=== PATIENT | female | born 1950 | race Caucasian/White ===

== ENCOUNTER 2020-04-12 17:47 | Emergency (ER) | payer BC, SELFPAY ==
--- NOTE | ~2020-04-12 | XR_ITS ---
EXAMINATION: XR chest 2V 04/12/2020 18:22 INDICATION: Tachycardia. Hypertension. PROCEDURE: 2 view chest COMPARISON: No prior studies for comparison. FINDINGS: The lungs are clear. The cardiomediastinal silhouette is within normal limits. There are no pleural effusions. There is no pneumothorax suspected. IMPRESSION: 1: NO ACUTE CARDIOPULMONARY DISEASE. Reviewed, dictated and finalized at location A.
--- NOTE | 2020-04-12 17:53 | ECG_ITS ---
Measurements Intervals [place] Rate: 128 P: MT: 0 QRS: 1 QRSD: 93 T: 66 QT: 300 QTc: 439 Interpretive Statements ATRIAL FIBRILLATION WITH RAPID VENTRICULAR RESPONSE VOLTAGE CRITERIA FOR LVH NONSPECIFIC ST & T-WAVE ABNORMALITY- HIGH LATERAL LEADS BASELINE ARTIFACT- I, II, AVR ABNORMAL ECG Electronically Signed On 04-13-2020 7:23:05 CDT by Sheng Lazo D.O.
[2020-04-12 17:57] VITALS: BP 160/117; PULSE 144; RESP 20; TEMP 36.1; O2SAT 99
[2020-04-12 18:08] LABS: Basophils Absolute Auto 0.1 K/mm3 (0.0-0.1); Basophils Percent Auto 0.8 % (0.2-1.2); Eosinophils Absolute Auto 0.2 K/mm3 (0-0.3); Eosinophils Percent Auto 1.5 % (0-4.4); Hemoglobin 14.3 g/dL (12.0-15.0); Immature Granulocyte Absolute 0.04 K/mm3 (0.00-0.031); Immature Granulocyte Percent A 0.4 % (0-0.5); Lymphocytes Absolute Auto 3.03 K/mm3 (0.9-3.2); Lymphocytes Percent Auto 31.1 % (18.3-44.2); Mean Corpuscular HGB Conc 32.5 g/dl (32-36); Mean Corpuscular Hemoglobin 28.9 pg (26-34); Mean Corpuscular Volume 88.9 fl (80-100); Mean Platelet Volume 10.1 fl (7.4-10.4); Monocytes Absolute Auto 1.1 K/mm3 (0.1-0.6); Monocytes Percent Auto 10.9 % (2.6-8.5); Neutrophils Absolute Auto 5.4 K/mm3 (1.3-6.7); Neutrophils Percent Auto 55.3 % (45.5-73.1); Platelet Count Result 303 k/mm3 (150-375); Red Blood Count 4.95 M/mm3 (4.2-5.4); Red Cell Distribution Width 13.1 % (11.5-14.5); White Blood Count 9.8 K/mm3 (4.5-10.0)
[2020-04-12 18:17] LABS: Prothrombin Time 12.8 Seconds (11.1-14.7)
[2020-04-12 18:18] LABS: Partial Thromboplastin Time 28.1 SECONDS (22.3-36.8)
[2020-04-12 18:19] LABS: Blood Urea Nitrogen 9 mg/dL (7-17); Calcium 9.1 mg/dL (8.4-10.2); Carbon Dioxide 31 mmol/L (22-30); Chloride 105 mmol/L (98-107); Estimated CRCL calculation 71 ml/min; Estimated Glomerular Filt Rate > 60; Glucose 77 mg/dL (65-105); Potassium 3.7 mmol/L (3.4-5.0); Sodium 140 mmol/L (137-145)
[2020-04-12 18:31] LABS: Troponin I < 0.012 ng/mL (0.000-0.034)
[2020-04-12] MEDS: ASPIRIN 81 MG CHEWABLE TABLET 324 MG PO (18:50)
[2020-04-12 18:52] VITALS: BP 142/80; PULSE 64; RESP 20; O2SAT 100
--- NOTE | 2020-04-12 19:08 | ED.ARRPALP ---
HPI - Arrhythmia/Palpitations General Chief Complaint: Arrhythmia/Palpitations Stated Complaint: heart racing Time Seen by Provider: 04/12/20 19:01 Source: RN notes reviewed History of Present Illness HPI narrative: Patient presents emergency department from home for arrhythmia. Patient states approximately 30 minutes prior to arrival she began feeling her heart was racing. She states that with that feeling she had a mild fullness in her chest. She states that she came to the emergency department and symptoms resolved on their own and currently has no complaints she denies any fevers or chills shortness of breath abdominal pain nausea vomiting or any other symptoms she states she does have a history of feeling similar complaints approximately once every 6 months she is had no formal work-up no cardiac history Related Data Home Medications Medication Instructions Recorded Confirmed fluoxetine 40 mg PO DAILY 04/12/20 lansoprazole 15 mg PO DAILY 04/12/20 Allergies Allergy/AdvReac Type Severity Reaction Status Date / Time No Known Allergies Allergy Verified 04/12/20 18:51 Review of Systems Review of Systems: Narrative: Gen.: Denies fevers or chills ENT: Denies congestion Respiratory: Denies shortness of breath or cough CV: See HPI GI: Denies abdominal pain nausea, emesis or diarrhea Musculoskeletal: Denies back pain or muscle pain Neuro: Denies numbness, tingling, weakness or focal weakness Skin: Denies rash Except as documented, all other systems reviewed and negative [facility] Past Medical History Medical History (Updated 04/12/20 @ 21:31 by Andrew Cornelius DO) Patient denies significant medical history Family History Family History (Updated 09/26/15 @ 14:20 by DOCTOR UNKNOWN) Mother Family history of Alzheimer's disease Sibling Family history of amyotrophic lateral sclerosis Patient's sister is Father Malignant neoplasm of prostate Other Depression Family history of malignant neoplasm of male breast Social History Social History Smoking status: Never smoker Second hand tobacco smoke exposure: No Smoking end date: 11/14/81 Alcohol intake: never Exam Narrative: Exam Narrative: APPEARANCE: No acute distress, nontoxic, resting in bed EYES: EOMI HEENT: Normocephalic, atraumatic, OMM RESPIRATORY: No respiratory distress Clear to auscultation bilaterally with no rhonchi wheezing or rales. CARDIOVASCULAR: Regular rate and rhythm without murmurs rubs or gallops. ABDOMINAL: Soft, nontender, nondistended, no rebound or guarding MUSCULOSKELETAl: Moves all extremities. No clubbing, cyanosis or edema. NEURO: Awake and alert. Following commands, speech normal, no focal deficits SKIN:: Warm, dry. No rashes lesions or abrasions PSYCHIATRIC: Normal affect/mood, Course Course Emergency Course: Patient spontaneously resolved to sinus rhythm in room Called and discussed with Dr. Hernandez presentation and work-up. 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 Howard for Dr. Murillo updated on patient care in ED Discussed with patient results of workup and diagnosis. Discussed need for follow-up with primary care, proper use of medication, and reasons to return to the emergency department. Patient understands and agrees to current treatment plan Vital Signs Vital signs: Vital Signs Temperature 97.0 F L 04/12/20 17:57 Pulse Rate 144 H 04/12/20 17:57 Respiratory Rate 20 04/12/20 17:57 Blood Pressure 160/117 H 04/12/20 17:57 Pulse Oximetry 99 04/12/20 17:57 Temperature 97.0 F L 04/12/20 17:57 Pulse Rate 62 04/12/20 22:02 Respiratory Rate 16 04/12/20 21:58 Blood Pressure 161/73 H 04/12/20 21:58 P
--- NOTE | 2020-04-12 19:10 | ECG_ITS ---
Measurements Intervals [place] Rate: 66 P: 28 CT: 149 QRS: 6 QRSD: 91 T: 51 QT: 420 QTc: 441 Interpretive Statements SINUS RHYTHM VOLTAGE CRITERIA FOR LVH MINIMAL Q WAVES- HIGH LATERAL LEADS BORDERLINE ECG Electronically Signed On 04-13-2020 7:25:57 CDT by Sheng Lazo D.O.
[2020-04-12 20:52] VITALS: BP 167/74; PULSE 58; RESP 16; O2SAT 100
[2020-04-12 21:25] LABS: Troponin I < 0.012 ng/mL (0.000-0.034)
[2020-04-12 21:58] VITALS: BP 161/73; PULSE 64; RESP 16; O2SAT 99
[2020-04-12 22:02] VITALS: PULSE 62
[2020-04-12] MEDS: METOPROLOL TARTRATE 12.5 MG TABLET PO (22:02)
[2020-04-12] MEDS: APIXABAN 5 MG TABLET PO (22:02)
== END 2020-04-12 22:07 | disposition home or self-care (01) ==
PROVIDERS: Emergency Medicine; Emergency Provider Emergency Medicine; PCP Physician Assistant
DX: I48.0 Paroxysmal atrial fibrillation (principal); R94.31 Abnormal electrocardiogram [ECG] [EKG]
CPT/HCPCS: 36415; 71046; 80048; 84484; 85025; 85610; 85730; 93005; 99284; A9270

== ENCOUNTER 2020-08-28 08:07 | Outpatient (CLI) | payer BC, SELFPAY ==
[2020-08-28 08:42] LABS: Hematocrit 40.8 % (37.0-47.0); Hemoglobin 13.4 g/dL (12.0-15.0); Mean Corpuscular HGB Conc 32.8 g/dl (32-36); Mean Corpuscular Hemoglobin 29.3 pg (26-34); Mean Corpuscular Volume 89.3 fl (80-100); Mean Platelet Volume 10.1 fl (7.4-10.4); Platelet Count Result 266 k/mm3 (150-375); Red Blood Count 4.57 M/mm3 (4.2-5.4); Red Cell Distribution Width 13.1 % (11.5-14.5); White Blood Count 7.8 K/mm3 (4.5-10.0)
[2020-08-28 08:55] LABS: Alanine Aminotransferase 15 U/L (4-35); Alkaline Phosphatase 79 U/L (38-126); Anion Gap 5 mmol/L (8-16); Aspartate Amino Transferase 28 U/L (14-36); Bilirubin,Total 0.4 mg/dL (0.2-1.3); Blood Urea Nitrogen 14 mg/dL (7-17); Calcium 9.1 mg/dL (8.4-10.2); Carbon Dioxide 30 mmol/L (22-30); Chloride 102 mmol/L (98-107); Cholesterol 171 mg/dL (0-200); Estimated Glomerular Filt Rate > 60; Glucose 106 mg/dL (65-105); HDL Direct 55 mg/dL; Potassium 4.5 mmol/L (3.4-5.0); Sodium 137 mmol/L (137-145); Triglycerides 131 mg/dL (<150)
[2020-08-28 09:06] LABS: LDL Cholesterol Direct 87 mg/dL
[2020-08-28 10:00] LABS: Folic Acid 16.1 ng/mL (2.76->20)
== END 2020-08-28 08:08 | disposition home or self-care (01) ==
LOC: ANHLAB 08:10
PROVIDERS: PCP Physician Assistant; Visit Provider Physician Assistant
DX: R53.83 Other fatigue (principal); I10 Essential (primary) hypertension
CPT/HCPCS: 36415; 80053; 80061; 82607; 82746; 84443; 85027

== ENCOUNTER → 2021-04-16 14:43 | Outpatient (CLI) | payer BC, SELFPAY ==
--- NOTE | ~2021-04-16 | MM_ITS ---
EXAMINATION: MM screening [place] BI w susie HISTORY: Screening TECHNIQUE: Craniocaudal and mediolateral oblique 3-D tomosynthesis images were obtained and synthetic 2-D images were generated. CAD analysis was submitted and interpreted. COMPARISON: Comparison to multiple prior studies sequentially, with oldest reviewed study dated 07/2015. BREAST PARENCHYMAL COMPOSITION: The breasts are almost entirely fatty. FINDINGS: There is no evidence of suspicious mass, calcification, or architectural distortion to sugg est malignancy in either breast. There has been no suspicious interval change. IMPRESSION: 1. No mammographic evidence of malignancy. 2. Recommend routine screening mammography in one year. BI-RADS Category 1: Negative Reviewed, dictated and finalized at location A.
== END ==
PROVIDERS: PCP Internal Medicine; Visit Provider Physician Assistant
DX: Z12.31 Encounter for screening mammogram for malignant neoplasm of breast (principal)
CPT/HCPCS: 77063; 77067

== ENCOUNTER 2021-05-11 10:43 | Outpatient (CLI) | payer BC, SELFPAY ==
--- NOTE | ~2021-05-11 | MR_ITS ---
EXAMINATION: MR knee RT wo con DATE: 05/11/2021 11:47 INDICATION: Right knee pain TECHNIQUE: Magnetic resonance imaging (MRI) of the right knee was performed without intravenous contr ast. Sequences included coronal PD-weighted FSE, coronal PD-weighted FS FSE, sagittal T2-weighted FS E, sagittal PD-weighted FS FSE and axial PD weighted fat saturated FSE. COMPARISON: None. FINDINGS: Medial compartment: Vertical . Beak configuration tear descending from the free edge to the periphery of the body of the medial meniscus. Small region of partial-thickness chondral fissuring at the anterior weightbearing m edial femoral condyle. Partial thickness cartilage loss involving greater than 50% the cartilage thic kness with deep fissuring at the central aspect of the weightbearing medial femoral condyle. Lateral compartment: Complex tear and lateral extrusion of the lateral meniscal body. Deep chondral ulceration along the p osterior weightbearing lateral femoral condyle. Patellofemoral compartment: Extensive partial thickness trochlear chondral ulceration with small region of mild cortical irregula rity at the medial trochlea. Patellar cartilage is normal. Ligaments and tendons: Anterior and posterior cruciate ligaments are normal. The medial collateral ligament is normal. There is thickening and mild increased signal of the proximal fibular collateral ligament without surround ing edema consistent with mild scarring related to chronic sprain. The extensor mechanism is normal. The visualized medial and lateral hamstring tendons as well as the iliotibial band are normal. Fluid: Physiologic amount of fluid in the joint space. No loose osteochondral bodies identified. Moderate-si zed Loo's cyst measuring 6 cm craniocaudally and up to 2.1 x 1.1 cm in maximal orthogonal dimension s. Osseous/other: Normal marrow signal. No fracture or pathologic marrow replacing process. IMPRESSION: 1. Medial and lateral meniscal tears. 2. 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 3. Moderate-sized Loo's cyst. 4. Thickening of the proximal fibular collateral ligament without significant surrounding edema consi stent with scarring related to chronic sprain. Reviewed, dictated and finalized at location A. IMPRESSION: 1. Medial and lateral meniscal tears. 2. Mild tricompartmental osteoarthritis with moderate to high-grade chondromala rory along the trochlea and regions of moderate grade chondral malacia in the me dial and lateral compartments. 3. Moderate-sized Loo's cyst. 4. Thickening of the proximal fibular collateral ligament without significant s urrounding edema consistent with scarring related to chronic sprain.
== END 2021-05-11 10:44 | disposition home or self-care (01) ==
LOC: ANHIMG 10:50
PROVIDERS: PCP Physician Assistant; Visit Provider Orthopaedic Surgery
DX: S83.241A Other tear of medial meniscus, current injury, right knee, initial encounter (principal); S83.281A Other tear of lateral meniscus, current injury, right knee, initial encounter; X58.XXXA Exposure to other specified factors, initial encounter; M71.21 Synovial cyst of popliteal space [Baker], right knee; M17.11 Unilateral primary osteoarthritis, right knee
CPT/HCPCS: 73721

== ENCOUNTER 2021-06-10 08:37 | Outpatient (CLI) | payer BC, SELFPAY ==
--- NOTE | 2021-06-10 08:45 | ECG_ITS ---
Measurements Intervals [place] Rate: 57 P: -6 [place]: 150 QRS: 0 QRSD: 106 T: 37 QT: 431 QTc: 420 Interpretive Statements SINUS BRADYCARDIA DELAYED PRECORDIAL R/S TRANSITION VOLTAGE CRITERIA FOR LVH BASELINE ARTIFACT- I, III, AVR, AVL, AVF BORDERLINE ECG Electronically Signed On 06-10-2021 8:56:19 CDT by Sheng Lazo D.O.
== END 2021-06-10 08:38 | disposition home or self-care (01) ==
LOC: ANHSURGERY 08:41
PROVIDERS: PCP Physician Assistant; Visit Provider Orthopaedic Surgery
DX: Z01.810 Encounter for preprocedural cardiovascular examination (principal); I10 Essential (primary) hypertension; R00.1 Bradycardia, unspecified
CPT/HCPCS: 93005

== ENCOUNTER 2021-06-15 01:14 | Day surgery (SDC) | payer BC, SELFPAY ==
[2021-06-09 10:51] VITALS: BMI 40.1
[2021-06-15] VITALS (8 sets, daily range): BP systolic 108–171; BP diastolic 60–82; PULSE 52–65; RESP 12–20; TEMP 36.4–36.9; O2SAT 98–100
--- NOTE | 2021-06-15 09:30 | WPDANESEPPF ---
Anes - Initial Pre Proc Eval Procedure: Operation Date: 06/15/21 15:00 Proposed Procedures p Right Knee Arthroscopy, Meniscectomy - Trace Roldan MD Date/Time: 06/15/21 09:30 Surgeon: Trace Roldan MD Pre Op Diagnosis: Right Knee Meniscal Tears Patient Data Age: 71 Gender: F Height: 1.57 m Weight: 99.5 kg Allergies Allergy/AdvReac Type Severity Reaction Status Date / Time No Known Allergies Allergy Verified 06/09/21 10:38 Home Medications Medication Instructions Recorded Confirmed Type fluoxetine 40 mg capsule 40 mg PO DAILY #90 cap 01/25/21 06/09/21 Rx lansoprazole 15 mg capsule,delayed 15 mg PO DAILY #90 cap 02/23/21 06/09/21 Rx release calcium carbonate 600 mg calcium 600 mg PO DAILY 03/02/21 06/09/21 History (1,500 mg) tablet multivitamin 1 tablet PO DAILY 03/17/21 06/09/21 History metoprolol succinate 25 mg 25 mg PO DAILY #90 tablet 04/21/21 06/09/21 Rx tablet,extended release 24 hr losartan 50 mg tablet See Rx Instructions .ROUTE 05/04/21 06/09/21 Rx .COMPLEX #90 tablet apixaban 5 mg tablet 5 mg PO BID #60 tablet 05/25/21 06/09/21 Rx Patient hx anesthesia problems: none Family hx anesthesia problems: none PMFSH Past Medical History Medical History (Updated 06/15/21 @ 09:31 by Aki Castillo MD) Anxiety Depression Hyperlipidemia Hypertension Morbid obesity with BMI of 40.0-44.9, adult Osteoarthritis of right knee Paroxysmal A-fib Right knee meniscal tear Surgical History Surgical History H/O arthroscopy of left knee 2008, Dr. Zhang H/O breast biopsy H/O laminectomy H/O: section History of cholecystectomy History of tonsillectomy Family History Family History Mother Family history of Alzheimer's disease Sibling Family history of amyotrophic lateral sclerosis Patient's sister is Father Malignant neoplasm of prostate Other Depression Family history of malignant neoplasm of male breast Social History Social History Smoking status: Former smoker Tobacco type: cigarettes Second hand tobacco smoke exposure: No Smoking end date: 11/14/81 Additional smoking assessment comments: stopped in 1981 few each day about 7 years total Alcohol intake: never Substance use: never Living arrangements: with family Gender identity (if verbalized by the patient): Female Anes - Eval Final PreProcedure Day of Procedure 06/15/21 09:30 Patient weight: morbidly obese Heart: regular rate and rhythm Lungs: clear to auscultation and normal air movement Airway: Mallampati scale class II Neurological: alert and oriented Last oral intake: >/= 8 hours ASA classification: III Emergent: no Anesthetic plan: proceed Anesthesia type and monitoring: general LMA Informed Consent: The patient's anesthetic plan and its attendant risks and benefits were discussed with the patient/family/POA. Questions were solicited and answers provided to the satisfaction of the patient/family/POA.
[2021-06-15] MEDS: ACETAMINOPHEN 500 MG TABLET 1000 MG PO (12:45)
[2021-06-15] MEDS: LACTATED RINGERS 1,000 ML 30 ML IV CONT (13:08)
[2021-06-15] MEDS: KETOROLAC 15 MG/ML VIAL (*BKC) IV PUSH (13:09)
--- NOTE | 2021-06-15 13:59 | WPDHPUPDATE1 ---
History and Physical Update Update Date/Time: 06/15/21 13:59 History and Physical has been reviewed, including an updated exam of the patient. There are NO changes in the patient's condition. Risks, benefits, and alternatives have been discussed and questions answered. Patient agrees to proceed with procedure.
[2021-06-15] MEDS: ceFAZolin 2 GM/D5W 50 ML 2 GM/50 ML BAG IVPB (14:02)
[2021-06-15] MEDS: LIDOCAINE HCL 1% LOCAL INJ 20 ML VIAL 30 ML INFILTRATE (14:21)
--- NOTE | 2021-06-15 15:22 | W.PM.PROC2 ---
Procedure Note - Detailed Date of Procedure 06/15/21 Pre-op Diagnosis Right Knee Meniscal Tears Post-op Diagnosis same Procedure Performed right knee arthroscopy with medial and lateral meniscectomy Surgeon Trace Roldan MD Anesthesia general Indications see H&P Description of Procedure The patient was identified and proper site identified. She was taken to the operating room and transferred to the OR table placing her supine taking care to pad the torso and extremities. After general anesthetic induction and intubation, a nonsterile tourniquet was placed high on the right thigh but was not use. The right lower extremity was positioned, prepped and draped in usual sterile fashion. 10 cc of 1% lidocaine was injected into the subcutaneous tissue in the area of the portals at start of the procedure, and an additional 10 at the end. The portals were established and the arthroscopy was carried out. articular cartilage tricompartmentally had extensive grade 2 and some grade 3 changes. There was marginal spurring noted around the distal femur. There was complex tearing of the medial and lateral menisci. These were debrided back to stable rim with basket forceps and a shaver. Arthrocare Wand was used for intra-articular hemostasis. The knee was flushed with a copious amount of arthroscopic fluid and equipment was removed. Portals were closed with 0 Vicryl sutures deep and three O nylon suture for the skin; a sterile dressing was applied. She tolerated the procedure well, was awakened, extubated and taken to recovery area in stable condition. There were no known intraoperative complications. Estimated blood loss was negligible. She received perioperative antibiotics. Estimated Blood Loss 20 Tourniquet Time 0 Drains No Packing No Pathology none sent Complications No immediate complications Condition stable Disposition PACU
== END 2021-06-15 17:15 | disposition home or self-care (01) ==
PROVIDERS: PCP Physician Assistant; Visit Provider Orthopaedic Surgery
PROC: (CPT 29870; principal; 2021-06-15 15:00)
DX: M23.361 Other meniscus derangements, other lateral meniscus, right knee (principal); M23.331 Other meniscus derangements, other medial meniscus, right knee; Z87.891 Personal history of nicotine dependence; I48.0 Paroxysmal atrial fibrillation; Z79.01 Long term (current) use of anticoagulants; F41.8 Other specified anxiety disorders; E78.5 Hyperlipidemia, unspecified; I10 Essential (primary) hypertension; E66.01 Morbid (severe) obesity due to excess calories; Z68.39 Body mass index [BMI] 39.0-39.9, adult; Z90.49 Acquired absence of other specified parts of digestive tract
CPT/HCPCS: 29880; A9270; J0690; J1100; J1885; J2405; J2704; J3010; J7120

== ENCOUNTER 2021-07-15 10:00 | Outpatient (RCR) | payer BC, SELFPAY ==
--- NOTE | 2021-06-17 11:50 | PTOPEVAL ---
PHYSICAL THERAPY EVALUATION Thank you for referring Angelica Treadwell to [facility] [place].? Angelica was evaluated for the dx of right knee scope. The patient is scheduled to be seen for therapy? 2 x/week for 4 weeks. Please review, sign, date and return this plan of care AILIN. I agree with and certify that the following plan of care is medically necessary. Referring Physician Date Referring Provider: Trace Roldan MD *PT Outpatient Evaluation Start: 06/17/21 10:36 Freq: Status: Active Protocol: Document 06/17/21 10:36 MLV (Rec: 06/17/21 11:12 MLV [id number]) Therapy Assessment Status Assessment Status Assessment Status Evaluation Evaluation Information Problem Diagnosis right knee MT; knee scope Onset 06/15/21 Additional Evaluation Detail The patient reports pain began in January 2021 after tripping over a cord. Prior to that, the patient reports no knee trouble at all. The patient lives home with her spouse, and was I w/o a device prior. The patient is retired and has no repetitive activities. The patient does housework, shopping and all other regular life activities. Diagnostic Tests MRI For This Problem Yes: MT; OA Previous Treatments Previous Treatments For This Problem none Pain Assessment Timing of Pain Assessment Timing of Pain Assessment Assessment Pain Scale Pain Scale Used Numeric (1 - 10) Self Report Pain Assessment Right Knee(s) Reported Pain Level 1 Pain Frequency Acute Other Pain Description 1 with activity Pain Score Pain Score 1: Self Report Interventions Used Interventions Used By Clinicians Education,Exercise,Ice Pain Relief Interventions Used By Elevation,Ice,Inactivity/Rest, Patient Medication,Position Change Lower Extremity Range of Motion General Lower Extremity Range of Motion Reason Not Measured WFL/Left,WFL/Right Gross Lower Extremity Range of Motion left knee active motion: 0-131' Comments right knee active motion: 0-88', passive motion 0-105' Lower Extremity Muscle Strength Testing General Lower Extremity Strength Reason Not Measured WFL/Left Gross Lower Extremity Strength right hip 4-/5. Left hip 3/5, knee 4-/5, ankle 5/5 Muscle Length Testing Muscle Length Testing Right Straight Leg Raise Muscle Length 90 (degrees) Left Straight Leg Raise Muscle Length 90
--- NOTE | 2021-07-13 09:47 | PCPTNOTE ---
Patient called & cancelled scheduled appointment this date-no reason given. Plans to return at next scheduled visit.
--- NOTE | 2021-07-15 15:28 | PTOPEVAL ---
PHYSICAL THERAPY DISCHARGE Thank you for referring Angelica Treadwell to [facility].? The patient has completed 8 visits for the dx of right knee scope. Goals are met. DC PT. Please review, sign, date and return this plan of care AILIN. I agree with and certify the following plan of care. Referring Physician Date Referring Provider: Trace Roldan MD *PT Outpatient Discharge Start: 06/17/21 10:36 Freq: Status: Active Protocol: Document 07/15/21 10:29 MLV (Rec: 07/15/21 10:46 MLV [id number]) Therapy Assessment Status Assessment Status Discharge Evaluation Information Problem Diagnosis right knee MT; knee scope Onset 06/15/21 Additional Evaluation Detail The patient reports pain decreased and has only a mild medial knee soreness. The patient reports completing all regular daily tasks without limits and feels she is walking well with the only trouble being stairs when alternating steps. The patient agrees she can continue her exercises on her own. Pain Assessment Timing of Pain Assessment Timing of Pain Assessment Assessment Self Report Self Report Pain Level 0 Pain Score Pain Score 0: Self Report Lower Extremity Range of Motion General Lower Extremity Range of Motion Gross Lower Extremity Range of Motion right knee 0-133 active motion Comments Lower Extremity Muscle Strength Testing General Lower Extremity Strength Gross Lower Extremity Strength right hip 5/5. Left hip 5/5, knee 5/5, ankle 5/5 isometric testing. Patient now able to climb stairs alternating with minimal UE support, indicating increased power at LE's. Palpation Assessment Palpation Palpation right knee incisions well healed with minimal noted swelling at knee. Non tender to pressure Balance Assessment Time Up Go (TUG) Timed Up and Go Test (TUG) (Seconds) 10 Assistive Devices None Gait Assessment Gait Pattern Assessment Other Gait Observations Patient ambulates I w/o a device w/o limits to distance. Occasional cues to decrease habit of lateral shifting. Stair Climbing Assessment Stair Climbing Assessment Stair Climbing Assistive Devices Railings Weight Bearing Status - Left Fu
== END 2021-07-16 10:19 | disposition home or self-care (01) ==
LOC: ANHPT 10:00
PROVIDERS: PCP Physician Assistant; Referring Provider Orthopaedic Surgery; Visit Provider Orthopaedic Surgery
DX: Z48.89 Encounter for other specified surgical aftercare (principal); Z98.890 Other specified postprocedural states
CPT/HCPCS: 97110; 97140; 97161

== ENCOUNTER 2021-08-26 09:05 | Outpatient (CLI) | payer BC, SELFPAY ==
[2021-08-26 09:29] LABS: Hematocrit 39.9 % (37.0-47.0); Mean Corpuscular HGB Conc 32.6 g/dl (32-36); Mean Corpuscular Hemoglobin 29.4 pg (26-34); Mean Corpuscular Volume 90.3 fl (80-100); Mean Platelet Volume 9.8 fl (7.4-10.4); Platelet Count Result 263 k/mm3 (150-375); Red Blood Count 4.42 M/mm3 (4.2-5.4); Red Cell Distribution Width 12.8 % (11.5-14.5); White Blood Count 7.5 K/mm3 (4.5-10.0)
[2021-08-26 10:45] LABS: Alanine Aminotransferase 15 U/L (4-35); Albumin Level 4.1 g/dL (3.5-5.1); Alkaline Phosphatase 77 U/L (38-126); Anion Gap 5 mmol/L (8-16); Aspartate Amino Transferase 27 U/L (14-36); Bilirubin,Total 0.4 mg/dL (0.2-1.3); Blood Urea Nitrogen 13 mg/dL (7-17); Calcium 9.1 mg/dL (8.4-10.2); Carbon Dioxide 30 mmol/L (22-30); Chloride 106 mmol/L (98-107); Cholesterol 172 mg/dL (0-200); Estimated Glomerular Filt Rate > 60; Glucose 105 mg/dL (65-110); HDL Direct 58 mg/dL; Potassium 4.5 mmol/L (3.4-5.0); Sodium 141 mmol/L (137-145); Triglycerides 86 mg/dL (<150)
[2021-08-26 10:55] LABS: LDL Cholesterol Direct 90 mg/dL
[2021-08-26 11:56] LABS: Folic Acid > 20.0 ng/mL (2.76->20)
== END 2021-08-26 09:06 | disposition home or self-care (01) ==
LOC: ANHLAB 09:09
PROVIDERS: PCP Physician Assistant; Visit Provider Physician Assistant
DX: R53.83 Other fatigue (principal); I10 Essential (primary) hypertension; E78.5 Hyperlipidemia, unspecified
CPT/HCPCS: 36415; 80053; 80061; 82607; 82746; 83735; 84443; 85027

== ENCOUNTER 2021-09-02 12:30 | Outpatient (RCR) | payer BC, SELFPAY ==
--- NOTE | 2021-08-12 10:52 | PTOPEVAL ---
PHYSICAL THERAPY EVALUATION Thank you for referring Angelica Treadwell to [facility].? Angelica was evaluated for the dx of right shoulder pain/tendonitis. The patient is scheduled to be seen for therapy?2 x/week for 4 weeks. Please review, sign, date and return this plan of care AILIN. I agree with and certify that the following plan of care is medically necessary. Referring Physician Date Attending Provider: Trace Roldan MD *PT Outpatient Evaluation Start: 08/12/21 09:30 Freq: Status: Active Protocol: Document 08/12/21 09:30 MLV (Rec: 08/12/21 10:35 MLV [id number]) Therapy Assessment Status Assessment Status Assessment Status Evaluation Evaluation Information Problem Diagnosis right shoulder pain/bone spur Onset December 2020 Cause no injury Additional Evaluation Detail The patient began having shoulder pain that got worse over time. The patient went to the MD, and was given an injection which helped the pain. The patient has a constant discomfort that is worse with certain motions and overuse. The patient is retired and does housework, and general life activities. The patient had trouble sleeping due to the pain and it is better since the shot but not completely better. Diagnostic Tests X-Rays For This Problem Yes: shoulder spur per pt Pain Assessment Timing of Pain Assessment Timing of Pain Assessment Assessment Pain Scale Pain Scale Used Numeric (1 - 10) Self Report Pain Assessment Right Shoulder(s) Reported Pain Level 1 Pain Description Aching Pain Frequency Chronic Other Pain Description 4 with overuse, 2 with sidelying sleeping Pain Aggravating Factors Exercise/Activity,Prolonged Position Pain Behaviors None Pain Score Pain Score 1: Self Report Interventions Used Interventions Used By Clinicians Education Pain Relief Interventions Used By Inactivity/Rest,Position Patient Change Upper Extremity Range of Motion General Upper Extremity Range of Motion Reason Not Measured WFL/Left,WFL/Right Gross Upper Extremity Range of Motion discomfort with right shoulder Comments active IR and elevation Upper Extremity Muscle Strength Testing General Upper Extremity Strength Reason Not Measu
--- NOTE | 2021-09-02 16:31 | PTOPEVAL ---
PHYSICAL THERAPY DISCHARGE Thank you for referring Angelica Teradwell to [facility].? Angelica has completed 5 visits for the dx of right shoulder pain. Goals are partially met and the pt cancelled her last few appts. The patient felt she was peaked with her therapy. DC PT. Please review, sign, date and return this plan of care AILIN. I agree with and certify the following plan of care. Referring Physician Date Attending Provider: Trace Roldan MD *PT Outpatient Discharge Start: 08/12/21 09:30 Freq: Status: Active Protocol: Document 09/02/21 15:26 MLV (Rec: 09/02/21 15:31 [email or web address] [email or web address]) Therapy Assessment Status Assessment Status Assessment Status Discharge Evaluation Information Problem Diagnosis right shoulder pain/bone spur Onset December 2020 Cause no injury Additional Evaluation Detail The patient reports her potential with therapy is peaked and wants to cancel her remaining appts. The patient denies trouble with her HEP and reports compliance. The patient states having pain mainly with more extensive reaching and lifting still but not really having pain at rest. Pain Assessment Timing of Pain Assessment Timing of Pain Assessment Assessment Pain Scale Pain Scale Used Numeric (1 - 10) Self Report Pain Assessment Right Shoulder(s) Reported Pain Level 0 Pain Description With Movement Pain Frequency Chronic Other Pain Description varies 2-5 with reach and lift Pain Behaviors Anxious Pain Score Pain Score 0: Self Report Interventions Used Interventions Used By Clinicians Education,Electrical Stimulation,Exercise,Heat Pain Relief Interventions Used By Exercise,Heat,Inactivity/Rest, Patient Position Change Upper Extremity Range of Motion General Upper Extremity Range of Motion Reason Not Measured WFL/Left,WFL/Right Gross Upper Extremity Range of Motion discomfort with arm elevation Comments Upper Extremity Muscle Strength Testing General Upper Extremity Strength Reason Not Measured WFL/Left,WFL/Right Gross Upper Extremity Strength Comments scapular strength: improved; lower traps 3+/5 benito, mid traps/rhomboids 4/5 without cueing required to initiate muscle contractions for postural correction. Palpation Asse
== END 2021-09-03 14:49 | disposition home or self-care (01) ==
LOC: ANHPT 12:30
PROVIDERS: PCP Physician Assistant; Visit Provider Orthopaedic Surgery
DX: M25.511 Pain in right shoulder (principal)
CPT/HCPCS: 97014; 97110; 97140; 97162; G0283

== ENCOUNTER 2021-09-21 08:59 | Outpatient (CLI) | payer BC, SELFPAY ==
--- NOTE | ~2021-09-21 | MR_ITS ---
EXAMINATION: MR shoulder RT wo con DATE: 09/21/2021 10:07 INDICATION: Right shoulder pain. TECHNIQUE: Magnetic resonance imaging (MRI) of the right shoulder was performed without intravenous c ontrast. Sequences included axial PD-weighted FS FSE, coronal oblique PD-weighted FS FSE and T2-weigh дмитрий FS FSE, and sagittal oblique T2-weighted FS FSE and T1-weighted FSE. COMPARISON: Right shoulder radiographs 07/30/2021 FINDINGS: Coracoacromial arch: The acromion undersurface is flat in morphology (type I). There is moderate acromioclavicular joint o steoarthritis. There is moderate subacromial/subdeltoid bursitis. Rotator cuff: There is a bursal-sided, partial-thickness tear of supraspinatus tendon measuring 12 mm anterior to p osterior by 6 mm proximal to distal by 70% tendon thickness. There is a small partial tear of the inf raspinatus myotendinous junction anteriorly. There is mild infraspinatus tendinopathy. Teres minor te ndon is normal. There is mild subscapularis tendinopathy. There is no asymmetric fatty atrophy of the rotator cuff muscle bellies. There is degenerative cystic change in greater tuberosity. Biceps tendon and glenoid labrum: Biceps tendon is in bicipital groove. There is mild intra-articular biceps tendinopathy. There is deg eneration of superior labrum without well-defined tear. Fluid: There is a small glenohumeral joint effusion. Bones/cartilage: The glenoid cartilage is normal. The humeral head cartilage is normal. IMPRESSION: 1. Bursal-sided, partial-thickness tear of supraspinatus tendon. Small partial-thickness tear of the myotendinous junction of the anterior infraspinatus (grade 2 muscle strain). 2. Moderate subacromial/subdeltoid bursitis. 3. Small glenohumeral joint effusion. 4. Moderate acromioclavicular joint osteoarthritis. 5. Mild intra-articular biceps tendinopathy. Reviewed, dictated and finalized at location A. [facility] IMPRESSION: 1. Bursal-sided, partial-thickness tear of supraspinatus tendon. Small partial- thickness tear of the myotendinous junction of the anterior infraspinatus (grad e 2 muscle strain). 2. Moderate subacromial/subdeltoid bursitis. 3. Small glenohumeral joint effusion. 4. Moderate acromioclavicular joint osteoarthritis. 5. Mild intra-articular biceps tendinopathy.
== END 2021-09-21 09:00 | disposition home or self-care (01) ==
PROVIDERS: PCP Physician Assistant; Visit Provider Orthopaedic Surgery
DX: M75.51 Bursitis of right shoulder (principal); M25.411 Effusion, right shoulder; M19.011 Primary osteoarthritis, right shoulder
CPT/HCPCS: 73221

== ENCOUNTER 2021-12-14 00:08 | Day surgery (SDC) | payer BC, SELFPAY ==
[2021-12-07 15:45] VITALS: BMI 40.8
--- NOTE | 2021-12-07 16:11 | PC.NURSE ---
Report to the Outpatient Waiting Room, entrance under the green pavilion located off [facility], at time _8:30AM on date _12/14/21 . OR Time: ___10:30AM . - You and your visitor will be asked a series of questions to screen for COVID 19 for your protection. - A mask is required within the hospital. - Only one visitor is allowed at this time. Patient visitors will be guided where to wait when not with patient. Preoperative COVID Testing Requirements: No COVID Test needed if: (proof is required; if not received patient will have Rapid Test prior to entry) - Patient has received COVID Vaccine at least 14 days prior to procedure date or - Patient has positive COVID test result within last 90 days of surgery date. COVID Test needed if above criteria is not met If not COVID vaccinated a COVID test must be conducted within 72 hours of surgery and patient is asked to isolate self from time of testing until procedure. You will go to the [facility] Site for your COVID testing. The [facility] Testing site is located at the corner of [address] from [facility]. You will only be called if COVID results are positive and your surgeon may reschedule your elective surgery date. Patients may have clear liquids (water, carbonated beverages, clear teas, apple juice) until 3 hours prior to surgery with a maximum of 20 ounces. - No food from midnight until time of surgery - Infants may have breast milk until 4 hours before surgery, infant formula 6 hours prior to surgery. - Children will be allowed to drink immediately following surgery. If applicable, please bring a bottle or sippy cup to assist with drinking. Juice, water, soda, and popsicles are readily available. For infants on formula, please bring formula the day of surgery. Pacifiers are allowed. Take the following medications with a SIP of water the morning of surgery: __FLUOXETINE & METOPROLOL Medications to discontinue per physician ___HOLD ELIQUIS (PER DR BARRETT) & ALL VITAMINS/SUPPLEMENTS 3 DAYS PRE-OP Date to take last dose 12/10/21 Please no make-up, nail austrian, hairspray, perfume, deodorant, or body powder the day of surgery. No jewelry (including any body piercings) or valuables the day of surgery, leave them at home. Please take a shower or bath the night before, or the morning of, surgery with an antibacterial soap. Wear comfortable, loose fitting clothing. Children are encouraged to wear pajamas. - Jewelry must be removed prior to entering the operating room. Rings and piercings that are not removed may be cut off. - The hospital will not accept responsibility for valuables. - Please leave all valuables, including medications, at home the day of surgery. If you are going home after surgery, a licensed motor coach driver must drive you home. - NO public transportation without another adult. - We recommend that an adult stay with you for 24 hours following discharge. - We also recommend that you do not drive, make important decision, drink alcoholic beverages, or take any drugs that were not prescribed by your health care provider for at least 24 hours after your discharge time. For Pediatric surgeries, we recommend two adults accompany the child home (only one inside the building at this time). Follow any additional instructions given to you from your surgeon. Telephone instructions given to __PATIENT and asked if any additional questions and then verbalized understanding. Patient advised to call surgeon office or pre surgery nurse liaison [phone] if any additional questions.
--- NOTE | 2021-12-12 16:34 | WPDANESEPPF ---
Anes - Initial Pre Proc Eval Procedure: Operation Date: 12/14/21 10:30 Proposed Procedures p Right Open Rotator Cuff Repair, Distal Clavicle Excision - Trace Roldan MD <Aki Castillo MD - Last Filed: 12/14/21 10:59> Date/Time: 12/12/21 16:34 <Aki Castillo MD - Last Filed: 12/14/21 10:59> Surgeon: Trace Roldan MD <Aki Castillo MD - Last Filed: 12/14/21 10:59> Pre Op Diagnosis: right rotator cuff tear, ac arthritis <Aki Castillo MD - Last Filed: 12/14/21 10:59> Patient Data Age: 71 Gender: F Height: 1.59 m Weight: 103 kg <Aki Castillo MD - Last Filed: 12/14/21 10:59> Allergies Allergy/AdvReac Type Severity Reaction Status Date / Time No Known Allergies Allergy Verified 12/14/21 08:57 <Aki Castillo MD - Last Filed: 12/14/21 10:59> Home Medications Medication Instructions Recorded Confirmed Type calcium carbonate 600 mg calcium 600 mg PO DAILY 03/02/21 12/14/21 History (1,500 mg) tablet multivitamin 1 tablet PO DAILY 03/17/21 12/14/21 History lansoprazole 15 mg capsule,delayed 15 mg PO DAILY #90 cap 10/11/21 12/14/21 Rx release acetaminophen 325 mg tablet 325 mg PO Q6H PRN 12/01/21 12/07/21 History bismuth subsalicylate 262 mg/15 mL 524 mg PO QID PRN 12/01/21 12/14/21 History oral suspension fluoxetine 40 mg PO QAM 12/07/21 12/14/21 History losartan 50 mg PO QAM 12/07/21 12/14/21 History metoprolol succinate 25 mg PO QAM 12/07/21 12/14/21 History apixaban 5 mg tablet 5 mg PO BID #60 tablet 12/08/21 Rx <Aki Castillo MD - Last Filed: 12/14/21 10:59> Patient hx anesthesia problems: none <Srikanth Davis MD - Last Filed: 12/14/21 09:33> Family hx anesthesia problems: none <Srikanth Davis MD - Last Filed: 12/14/21 09:33> Results Review: All pre-operative results and documents have been reviewed as part of the pre-operative evaluation. <Aki Castillo MD - Last Filed: 12/14/21 10:59> PMFSH Past Medical History Medical History: Medical History Anxiety Arthritis of right acromioclavicular joint Depression Hyperlipidemia Hypertension Morbid obesity with BMI of 40.0-44.9, adult Osteoarthritis of right knee Paroxysmal A-fib Right knee meniscal tear Right rotator cuff tear Subacromial impingement of right shoulder <Aki Castillo MD - Last Filed: 12/14/21 10:59> Surgical History Surgical History: Surgical History H/O arthroscopy of left knee 2008, Dr. Zhang H/O breast biopsy H/O laminectomy H/O: section History of arthroscopy of right knee medial and lateral meniscectomy June 15, 2021 History of cholecystectomy History of tonsillectomy <Aki Castillo MD - Last Filed: 12/14/21 10:59> Family History Family History: Family History Mother Family history of Alzheimer's disease Sibling Family history of amyotrophic lateral sclerosis Patient's sister is Father Malignant neoplasm of prostate Other Depression <Aki Castillo MD - Last Filed: 12/14/21 10:59> Social History Social History: Social History Smoking packs per day: 1 Smoking cigarettes per day: 20.0 Years smoked: 25 Smoking pack-years: 25.00 Smoking status: Former smoker Tobacco type: cigarettes Second hand tobacco smoke exposure: No Smoking end date: 05/14/82 Additional smoking assessment comments: stopped in 1981 few each day about 7 years total Alcohol intake: never Substance use: never Living arrangements: with family Additional living arrangements comments: HUSB Gender identity (if verbalized by the patient): Female Spiritual care concerns: No <Wells Kamran Castillo MD - Last Filed: 12/14
--- NOTE | 2021-12-12 16:36 | WPDANESPNB ---
Anes - Peripheral Nerve Block Date/Time: 12/12/21 16:36 I have discussed with the patient/family/POA the placement of a peripheral nerve block for post-operative pain management, including associated risks, benefits, complications, and side effects. Alternative methods of post-operative analgesia were detailed. Questions were solicited and answers provided to the satisfaction of the patient/family/POA. Time-Out: A pre-procedural Time-Out was completed immediately before starting the procedure and confirmed: Patient Identification, Site, Procedure, Patient Position and the Availability of Requisite Equipment. Clinical Indications: Acute post-operative pain management requested by the operative surgeon. Nerve Block Insertion Note Anes-nerve block: supraclavicular right Patient position: supine Skin prep: chlorhexidine Needle: 22 gauge, stimulating, insulated echogenic needle. Needle length: 80 mm Technique: ultrasound (in plane) Injectate: bupivacaine 0.5% with epi 5 mcg/ml (20cc) Observations: tolerated well Complications: none Procedure start time:: 1050 Procedure end time:: 1055
[2021-12-14] VITALS (9 sets, daily range): BP systolic 97–163; BP diastolic 37–89; PULSE 55–69; RESP 14–16; TEMP 36.1–36.2; O2SAT 92–99
[2021-12-14] MEDS: ACETAMINOPHEN 500 MG TABLET 1000 MG PO (09:10)
[2021-12-14] MEDS: LACTATED RINGERS 1,000 ML 30 ML IV CONT ×2 (09:17→12:29)
[2021-12-14] MEDS: KETOROLAC 15 MG/ML VIAL (*BKC) IV PUSH (09:41)
--- NOTE | 2021-12-14 10:03 | WPDHPUPDATE1 ---
History and Physical Update Update Date/Time: 12/14/21 10:03 History and Physical has been reviewed, including an updated exam of the patient. There are NO changes in the patient's condition. Risks, benefits, and alternatives have been discussed and questions answered. Patient agrees to proceed with procedure.
[2021-12-14] MEDS: ceFAZolin 2 GM/D5W 50 ML 2 GM/50 ML BAG IVPB (11:03)
[2021-12-14] MEDS: BUPIVACAINE/EPINEPHRINE 0.25% 10 ML VIAL INFILTRATE (11:31)
--- NOTE | 2021-12-14 12:25 | P.OP_ITS ---
Procedure Note - Detailed Date of Procedure 12/14/21 Pre-op Diagnosis right rotator cuff tear, ac arthritis Post-op Diagnosis same Procedure Performed Right shoulder rotator cuff repair with distal clavicle excision Surgeon Trace Roldan MD Vp Director Of [employer] [place] Anesthesia general and regional Description of Procedure Patient was identified and proper site identified. In the preop holding area the anesthesia team performed a right upper extremity block. She was then taken to the operating room and transferred to the or table taking care to pad the torso and extremities. After general anesthetic induction and intubation, she was put in a semi beach chair position in the usual manner for a right shoulder procedure. Her head was secured taking care to neither rotate nor extend the head and neck. The right upper extremity was prepped and draped free in usual sterile fashion. The subcutaneous tissue in the area of the incision was injected with 10 cc of 0.25% Marcaine and epinephrine solution. An oblique anterior incision was made extending from the AC joint distally in line with the fibers of the deltoid. Subcutaneous tissue was sharply dissected down to the deltoid fascia. The deltoid was dissected off the anterior portion of the acromion in the distal end of the clavicle. A 2 cm split was made at the junction between the anterior and middle thirds of the deltoid. Using the microsagittal saw the last 8 mm of clavicle removed. The saw was also used to perform the acromioplasty and then the undersurface of the acromion was rasped smooth. inflamed bursa was debrided allowing for complete visualization of the cuff. There was a full-thickness erosive type tear at the anterior portion of the greater tuberosity where the supraspinatus footprint is. Biceps tendon was inspected and noted to be in decent shape. The tendon edges were freshened up and then the tendon was able to be repaired anatomically with 2. Ethibond suture. This gave a ibarra repair which was stable as the shoulder was taken through range of motion. The wound was irrigated with sterile NaCl solution. The deltoid was repaired back to the acromion with 2. Ethibond suture passed through bone and the remainder of the deltoid repair carried out with 2. Vicryl. Subcutaneous tissue was reapproximated with 2. Strata fix and then tissue adhesive used for the skin. Sterile dressing was applied. There were no known intraoperative complications, and perioperative antibiotics were administered. Estimated Blood Loss 20 Drains No Packing No Pathology none sent Complications No immediate complications Condition stable Disposition PACU
== END 2021-12-14 14:40 | disposition home or self-care (01) ==
PROVIDERS: PCP Physician Assistant; Visit Provider Orthopaedic Surgery
PROC: (CPT 23420; principal; 2021-12-14 10:30)
DX: M75.111 Incomplete rotator cuff tear or rupture of right shoulder, not specified as traumatic (principal); M19.011 Primary osteoarthritis, right shoulder; G89.18 Other acute postprocedural pain; I48.0 Paroxysmal atrial fibrillation; I10 Essential (primary) hypertension; E78.5 Hyperlipidemia, unspecified; F41.8 Other specified anxiety disorders; Z79.01 Long term (current) use of anticoagulants; Z87.891 Personal history of nicotine dependence; E66.9 Obesity, unspecified; Z68.39 Body mass index [BMI] 39.0-39.9, adult
CPT/HCPCS: 23412; 23120; 64415; A4565; A9270; J0690; J1100; J1885; J2250; J2405; J2704; J3010; J7120

== ENCOUNTER 2022-02-11 10:00 | Outpatient (RCR) | payer BC, SELFPAY ==
--- NOTE | 2021-12-16 12:15 | PTOPEVAL ---
PHYSIAL THERAPY INITIAL EVALUATION Thank you for referring Angelica Treadwell to [facility].? The patient is scheduled to be seen for therapy? 2x/week for 4 weeks. Please review, sign, date and return this plan of care AILIN. I agree with and certify that the following plan of care is medically necessary. Referring Physician Date Attending Provider: Trace Roldan MD PT Outpatient Evaluation Start: 12/16/21 Evaluation Information Problem Diagnosis post op rotator cuff repair Onset 12/14/21 Cause surgical Subjective Information Pt states she had surgery on 1 Query Text:As Reported By Patient. She states she has had Family difficultly sleeping the last two nights due to pain. She states she has been taking her pain medication regularly and it helps a little. Pt states she has been wearing her sling every time she is not seated or laying down. Pain Assessment Reported Pain Level 7 Pain Description Incisional,Sharp,Soreness Pain Frequency Continuous Other Pain Description Pain medication are helping to manage pain Lowest Pain Intensity 7 Greatest Pain Intensity 8 Pain Aggravating Factors Palpation,Procedure or Surgery ,Sitting,Supine Interventions Used By Clinicians Education,Exercise,Rest Pain Relief Interventions Used By Ice,Medication Patient Gross Upper Extremity Range of Motion PROM in supine- flexion 64 Comments degrees, abduction 62 degrees, ER in scaption 23 degrees Range limited by pain General Exercise Side Right Exercise Type Active,Active/Assistive, Stretching Exercise Description - HEP given this date: AROM Query Text:Record Sets, Reps, elbow flex/ext, AROM wrist Resistance, and Position flex/ext/circumduction, table slides flex/abd. x10 reps of each Additional Rehab Teaching Comments Reviewed post surgical instructions. PT Clinical Summary Angelica is a 71 y/o female who presents today 2 days status post rotator cuff repair. She states her pain is managed well when she is resting in her chair with her arm proped
--- NOTE | 2021-12-17 08:19 | PCPTNOTE ---
I reviewed Mis Wooten, PT License Pending documentation and agree with the findings.
[2022-01-13 09:04] VITALS: BP_SYST 131
--- NOTE | 2022-01-13 11:56 | PTOPEVAL ---
PHYSICAL THERAPY PROGRESS NOTE. Thank you for referring Angelica Treadwell to [facility].? The patient is scheduled to be seen for therapy? 2x/week for 4 weeks. Please review, sign, date and return this plan of care AILIN. I agree with and certify that the following plan of care is medically necessary. Referring Physician Date Attending Provider: Trace Roldan MD *PT Outpatient Evaluation Start: 12/16/21 Evaluation Information Subjective Information Pt reports she thinks she is Query Text:As Reported By Patient/ doing well. She states she Family started out in bad shape and has improved weekly. Pain Assessment Right Anterior Shoulder(s) Reported Pain Level 1 Lowest Pain Intensity 1 Greatest Pain Intensity 3 Upper Extremity Range of Motion Right Shoulder Flexion - Active 108 Shoulder Flexion - Passive 128 Shoulder Abduction - Active 120 Shoulder Abduction - Passive 131 Upper Extremity Muscle Strength Testing Right Shoulder Flexion Strength 3+ Fair + Shoulder Extension Strength 4 Good Shoulder Abduction Strength 3+ Fair + Shoulder Medial Rotation Strength 4- Good - Shoulder Lateral Rotation Strength 4- Good - Manual Therapy Manual Therapy Side Right Manual Therapy Location Shoulder Patient Position Supine Manual Therapy Treatment Passive Stretching Manual Therapy Movement Direction Distraction Movement Findings Severe Hypomobility,Guarding, Hypersensitivity Treatment Comments -PROM stretching to shoulder Query Text:Include Technique and in flexion to tolerance, Result of Technique abduction to tolerance, and ER to neutral. PT Clinical Summary Angelica presents to therapy for her 4 week progress note. She is now out of the sling and doing well. She is attempting to use her arm more regularly. Pt reports her R shoulder is performing at 60-70% compared to the L shoulder. She still is lacking both active and passive ROM as well as strength compared to the uninvolved but is progressing as expected. Continuation of skilled physial therapy services are indicated to address remaining deficits. SPADI: Pain score: 22%, Disability score 10%, SPADI 14% Treatment Frequency and Du
[2022-02-11 10:02] VITALS: BP_SYST 146
--- NOTE | 2022-02-11 10:58 | PTOPEVAL ---
PHYSICAL THERAPY PROGRESS REPORT AND DISCHARGE SUMMARY. Thank you for referring Angelica Treadwell to [facility].? The patient is to be discharged from skilled physical therapy services at this time. Please review, sign, date and return this plan of care AILIN. I agree with and certify that the following plan of care is medically necessary. Referring Physician Date Attending Provider: Trace Roldan MD Evaluation Information Diagnosis post op rotator cuff repair Onset 12/14/21 Subjective Information Pt states she is doing really Query Text:As Reported By Patient/ well. She states more and more Family she has been waking on her R side, this is improvement but states it is sore when she wakes up. Pt states she is 95% better, but that last 5% is hard to get back. Pain Assessment Right Anterior Shoulder(s) Reported Pain Level 0 Greatest Pain Intensity 2 Upper Extremity Range of Motion Scapular/ Shoulder Range of Motion Right Shoulder Flexion - Active 132 Shoulder Flexion - Passive 145 Shoulder Abduction - Active 120 Shoulder Abduction - Passive 146 Shoulder Medial Rotation - Active T2 - T4 with left Shoulder Lateral Rotation - Active T12- T10 with left Upper Extremity Muscle Strength Testing Right Shoulder Flexion Strength 3+ Fair + Shoulder Extension Strength 4 Good Shoulder Abduction Strength 4- Good - Shoulder Medial Rotation Strength 4- Good - Shoulder Lateral Rotation Strength 4 Good Palpation Assessment Palpation Mild tenderness at medial clavicle and along medial border of the biceps muscle PT Clinical Summary Angelica presents to therapy today for her progress reports following 16 visits of therapy for her R shoulder rotator cuff repair. Today she continues to demonstrate functional range of motion and fair strength when compared to the uninvolved UE. She reports a history of poor UE strength. She states 95% improvement in overall symptoms. Pt is to be discontinued from skilled physical therapy services at this time to continue her home exercise program. Pt was agreeable with this plan of
== END 2022-02-11 14:45 | disposition home or self-care (01) ==
LOC: ANHPT 10:00
PROVIDERS: PCP Physician Assistant; Visit Provider Orthopaedic Surgery
DX: Z48.89 Encounter for other specified surgical aftercare (principal); M75.111 Incomplete rotator cuff tear or rupture of right shoulder, not specified as traumatic; Z98.890 Other specified postprocedural states
CPT/HCPCS: 97014; 97110; 97112; 97140; 97161; 97530; G0283

== ENCOUNTER 2022-07-20 10:30 | Outpatient (CLI) | payer BC, SELFPAY ==
[2022-07-20 11:12] LABS: Lipase 126 U/L (23-300)
== END 2022-07-20 10:31 | disposition home or self-care (01) ==
LOC: ANHLAB 10:35
PROVIDERS: PCP Physician Assistant; Visit Provider Physician Assistant
DX: R10.9 Unspecified abdominal pain (principal)
CPT/HCPCS: 36415; 83690

== ENCOUNTER 2022-08-03 00:30 | Day surgery (SDC) | payer BC, SELFPAY ==
[2022-07-27 15:07] VITALS: BMI 36.0
[2022-08-03 08:20] VITALS: BP 144/64; PULSE 58; RESP 18; TEMP 36.2; O2SAT 98
[2022-08-03] MEDS: LACTATED RINGERS 1,000 ML 150 ML IV CONT (08:30)
--- NOTE | 2022-08-03 08:41 | WPDANESEPPF ---
Anes - Initial Pre Proc Eval Procedure: Operation Date: 08/03/22 09:45 Proposed Procedures p Esophagogastroduodenoscopy - Ruben Henley MD Date/Time: 08/03/22 08:41 Surgeon: Ruben Henley MD Pre Op Diagnosis: early satiety, abdominal distension Patient Data Age: 72 Gender: F Height: 1.59 m Weight: 93.4 kg Last Vital Signs Temp 36.2 C L 08/03/22 08:20 Pulse 58 L 08/03/22 08:20 Resp 18 08/03/22 08:20 BP 144/64 H 08/03/22 08:20 Pulse Ox 98 08/03/22 08:20 O2 Del Method Room Air 08/03/22 08:20 Allergies Allergy/AdvReac Type Severity Reaction Status Date / Time No Known Allergies Allergy Verified 08/03/22 08:19 Home Medications Medication Instructions Recorded Confirmed Type calcium carbonate 600 mg calcium 600 mg PO DAILY 03/02/21 08/03/22 History (1,500 mg) tablet (Calcium) multivitamin (Daily Multi-Vitamin 1 tablet PO DAILY 03/17/21 08/03/22 History tablet) acetaminophen 325 mg tablet 325 mg PO Q6H PRN Pain 12/01/21 08/03/22 History (Tylenol) rivaroxaban 20 mg tablet (Xarelto) 20 mg PO DAILY 12/28/21 08/03/22 History losartan 50 mg tablet See Rx Instructions .Route 04/22/22 08/03/22 Rx .COMPLEX #90 tabs fluoxetine 40 mg capsule See Rx Instructions .Route 07/01/22 08/03/22 Rx .COMPLEX #90 caps lansoprazole 15 mg capsule,delayed 15 mg PO DAILY #90 caps 07/01/22 08/03/22 Rx release metoprolol succinate 25 mg See Rx Instructions .Route 07/01/22 08/03/22 Rx tablet,extended release 24 hr .COMPLEX #90 tabs amlodipine 2.5 mg tablet 2.5 mg PO DAILY 07/27/22 08/03/22 History Patient hx anesthesia problems: none Family hx anesthesia problems: none Results Review: All pre-operative results and documents have been reviewed as part of the pre-operative evaluation. [facility] Past Medical History Medical History Anxiety Arthritis of right acromioclavicular joint Depression Hyperlipidemia Hypertension Morbid obesity with BMI of 40.0-44.9, adult Osteoarthritis of right knee Paroxysmal A-fib Right knee meniscal tear Subacromial impingement of right shoulder Surgical History Surgical History H/O arthroscopy of left knee 2008, Dr. Zhang H/O breast biopsy H/O laminectomy H/O: section History of arthroscopy of right knee medial and lateral meniscectomy June 15, 2021 History of cholecystectomy History of tonsillectomy Right rotator cuff tear right rotator cuff repair with distal clavicle excision December 14, 2021 Family History Family History Mother Family history of Alzheimer's disease Sibling Family history of amyotrophic lateral sclerosis Patient's sister is Father Malignant neoplasm of prostate Other Depression Social History Social History (Updated 08/03/22 @ 08:41 by Alejandro Duvall MD) Smoking packs per day: 1 Smoking cigarettes per day: 20.0 Years smoked: 25 Smoking pack-years: 25.00 Smoking status: Former smoker Tobacco type: cigarettes Second hand tobacco smoke exposure: No Smoking end date: 05/14/82 Additional smoking assessment comments: stopped in 1981 few each day about 7 years total Alcohol intake: never Substance use: never Substance use type: does not use Living arrangements: with family Additional living arrangements comments: HUSB Gender identity (if verbalized by the patient): Female Spiritual care concerns: No Anes - Eval Final PreProcedure Day of Procedure 08/03/22 08:41 Patient weight: obese Heart: regular rate and rhythm Lungs: clear to auscultation Airway: Mallampati scale class II Neurological: alert and oriented Last oral intake: >/= 8 hours ASA classification: III Emergent: no Anesthetic plan: proceed Anesthesia type and monitoring: general GIVS and standard monitoring Resul
--- NOTE | 2022-08-03 09:04 | PM.IMHP ---
H&P: HPI History of Present Illness Date/Time: 08/03/22 09:04 Chief Complaint: Bloating Narrative: this is a 72-year-old white female patient referred by Alex Sullivan. Patient is a very poor historian. She reports a 1 month history of diarrhea that apparently is improved she notices bloating. She feels full to her throat. Patient continues to feel poorly. She denies any prior stool studies. She is referred for an EGD. Patient currently being treated with lansoprazole. She is uncertain of any additional medications being prescribed. EGD is requested today. No bleeding is noted. Family history noncontributory. Review of Systems Review of Systems: Review of systems noncontributory. [facility] Past Medical History Medical History Anxiety Arthritis of right acromioclavicular joint Depression Hyperlipidemia Hypertension Morbid obesity with BMI of 40.0-44.9, adult Osteoarthritis of right knee Paroxysmal A-fib Right knee meniscal tear Subacromial impingement of right shoulder Surgical History Surgical History H/O arthroscopy of left knee 2008, Dr. Zhang H/O breast biopsy H/O laminectomy H/O: section History of arthroscopy of right knee medial and lateral meniscectomy June 15, 2021 History of cholecystectomy History of tonsillectomy Right rotator cuff tear right rotator cuff repair with distal clavicle excision December 14, 2021 Family History Family History Mother Family history of Alzheimer's disease Sibling Family history of amyotrophic lateral sclerosis Patient's sister is Father Malignant neoplasm of prostate Other Depression Social History Social History (Updated 08/03/22 @ 08:41 by Alejandro Duvall MD) Smoking packs per day: 1 Smoking cigarettes per day: 20.0 Years smoked: 25 Smoking pack-years: 25.00 Smoking status: Former smoker Tobacco type: cigarettes Second hand tobacco smoke exposure: No Smoking end date: 05/14/82 Additional smoking assessment comments: stopped in 1981 few each day about 7 years total Alcohol intake: never Substance use: never Substance use type: does not use Living arrangements: with family Additional living arrangements comments: [facility] Gender identity (if verbalized by the patient): Female Spiritual care concerns: No Meds Home Medications and Allergies Home Medications Medication Instructions Recorded Confirmed Type calcium carbonate 600 mg calcium 600 mg PO DAILY 03/02/21 08/03/22 History (1,500 mg) tablet (Calcium) multivitamin (Daily Multi-Vitamin 1 tablet PO DAILY 03/17/21 08/03/22 History tablet) acetaminophen 325 mg tablet 325 mg PO Q6H PRN Pain 12/01/21 08/03/22 History (Tylenol) rivaroxaban 20 mg tablet (Xarelto) 20 mg PO DAILY 12/28/21 08/03/22 History losartan 50 mg tablet See Rx Instructions .Route 04/22/22 08/03/22 Rx .COMPLEX #90 tabs fluoxetine 40 mg capsule See Rx Instructions .Route 07/01/22 08/03/22 Rx .COMPLEX #90 caps lansoprazole 15 mg capsule,delayed 15 mg PO DAILY #90 caps 07/01/22 08/03/22 Rx release metoprolol succinate 25 mg See Rx Instructions .Route 07/01/22 08/03/22 Rx tablet,extended release 24 hr .COMPLEX #90 tabs amlodipine 2.5 mg tablet 2.5 mg PO DAILY 07/27/22 08/03/22 History Allergies Allergy/AdvReac Type Severity Reaction Status Date / Time No Known Allergies Allergy Verified 08/03/22 08:19 Vital Signs Vital Signs - 24 hr 08/03/22 08:20 Temperature 97.2 F L Pulse Rate 58 L Respiratory Rate 18 Blood Pressure 144/64 H Pulse Oximetry 98 Oxygen Delivery Room Air Exam Narrative: Physical exam reveals patient to be alert. Vital signs stable. HEENT exam reveals no icterus. Lungs are clear. Heart without murmur. Abdomen is obese. Bowel soun
[2022-08-03] MEDS: BENZOCAINE (*SP) 60 ML SPRAY CAN (HURRICAINE) 1 SPRAY MUCOUS MEM (09:44)
[2022-08-03 09:52] VITALS: BP 124/65; PULSE 55; RESP 19; O2SAT 95
[2022-08-03 10:02] VITALS: BP 135/75; PULSE 58; RESP 20; O2SAT 96
[2022-08-03 10:12] VITALS: BP 140/76; PULSE 56; RESP 15; O2SAT 96
== END 2022-08-03 10:30 | disposition home or self-care (01) ==
PROVIDERS: PCP Physician Assistant; Visit Provider Internal Medicine Gastroenterology
PROC: 0DJ08ZZ Inspection of Upper Intestinal Tract, Via Natural or Artificial Opening Endoscopic (ICD-10-PCS; CPT 43235; principal; 2022-08-03 09:45)
DX: K30 Functional dyspepsia (principal); R10.9 Unspecified abdominal pain; R19.7 Diarrhea, unspecified; R14.0 Abdominal distension (gaseous); I10 Essential (primary) hypertension; E78.5 Hyperlipidemia, unspecified; I48.0 Paroxysmal atrial fibrillation; F41.9 Anxiety disorder, unspecified; F32.A Depression, unspecified; E66.9 Obesity, unspecified; Z68.37 Body mass index [BMI] 37.0-37.9, adult; Z87.891 Personal history of nicotine dependence; Z79.01 Long term (current) use of anticoagulants
CPT/HCPCS: 43239; 87081; J2704; J7120